=== PATIENT | male | born 1990 | race Two or more races ===

== ENCOUNTER 2019-06-25 12:17 | Inpatient (IN) | payer OTHER ==
[2019-06-25 14:23] VITALS: BMI 25.3
--- NOTE | 2019-06-25 16:28 | HP ---
COWS - Scale Resting Pulse: 1= IL 81-100 Sweatin= Chills/Flushing Restless Observation: 0= Sits Still Pupil Size: 1= Pupils >than Normal Bone or Joint Aches: 1= Mild Discomfort Runny Nose/ Eye Tearin= Nasal Congestion GI Upset > 30mins: 2= Nausea/Diarrhea Tremor Observation: 1= Tremor [place], Not Seen Yawning Observation: 0= None Anxiety or Irritability: 1=Feels Anxious/Irritable Goose Flesh Skin: 0=Smooth Skin COWS Score: 9 CIWA Score - Admission Criteria OASAS Guidelines: Admission for Medically Managed Detox: Requires at least one of the followin. CIWA greater than 12 2. Seizures within the past 24 hours 3. Delirium tremens within the past 24 hours 4. Hallucinations within the past 24 hours 5. Acute intervention needed for co occurring medical disorder 6. Acute intervention needed for co occurring psychiatric disorder 7. Severe withdrawal that cannot be handled at a lower level of care (continued vomiting, continued diarrhea, abnormal vital signs) requiring intravenous medication and/or fluids 8. Admitting History and Physical - Admission History of Present Illness: 29 yo m w/ PMH herion abuse comes in for detox from heroin. Patient endorses using 6-8 bags of herion IV daily for the past 2 weeks. He was recently admitted to detox at [facility] and was discharged on outpatient Vivitrol. His last Vivitrol injection was 06/02. After discharge from [facility], he was clean for 2 months until 2 weeks ago. Patient endorses overdosing 8 months ago. Patient has a narcan kit at home. Patient was tested for HIV/HCV 2 months ago at [facility] and states that they were both negative. Patient declined repeat testing at this time. Patient endorses smoking 2 cigarettes per day. Patient does not meet detox criteria as he is on vivitrol. Patient agrees to stay for rehab, however. History Source: Patient Limitations to Obtaining History: No Limitations - Past Medical History Psych: Yes: Addictions - Past Surgical History Past Surgical History: Yes: None - Smoking History Smoking history: Current every day smoker Have you smoked in the past 12 months: Yes Aproximately how many cigarettes per day: 2 Admission ROS S - HPI Allergies/Adverse Reactions: Allergies Allergy/AdvReac Type Severity Reaction Status Date / Time No Known Allergies Allergy Verified 06/25/19 14:19 - Ebola screening Have you traveled outside of the country in the last 21 days: No Have you had contact with anyone from an Ebola affected area: No - Review of Systems Constitutional: Weakness Musculoskeletal: reports: Back Pain Psychiatric: reports: Judgement Intact, Mood/Affect Appropiate, Orientated x3 Patient History - Smoking Cessation Smoking history: Current every day smoker Have you smoked in the past 12 months: Yes Initiated information on smoking cessation: Yes 'Breaking Loose' booklet given: 06/25/19 - Substances abused Heroin Substance route: Injection Frequency: Daily Amount used: 6-7 bags Age of first use: 22 Date of last use: 06/24/19 Admission Physical Exam [facility] - Vital Signs Vital Signs: Vital Signs - 24 hr 06/25/19 14:19 Temperature 97.7 F Pulse Rate 94 H Respiratory 18 Rate Blood Pressure 114/76 - Physical General Appearance: Yes: No Apparent Distress, Nourished, Appropriately Dressed HEENTM: Yes: EOMI, Normal ENT Inspection, GILDARDO Respiratory: Yes: Chest Non-Tender, Lungs Clear, Normal Breath Sounds, No Respiratory Distress, No Accessory Muscle Use Neck: Yes: Trachea in good position Cardiology: Yes: Regular Rhythm, Regular Rate, S1, S2. No: JVD, Murmur, Gallop/ S3, Gallop/S4 Abdominal: Yes: Normal Bowel Sounds, Non Tender, Flat, Soft Neurological: Yes: ventilating engineer II-XII NML intact, Fully Oriented, Alert, Motor Strength 5/5, Normal Mood/Affect, Normal Response Integumentary: Yes: Normal Color, Dry, Warm - Diagnostic (1) Opioid dependence Current Visit: Yes Status: Acute Breathalyzer - Breathalyzer Breathalyzer: 0 Urine Drug Screen - Test Device Lot number: [id number] Expiration date: 01/07/21 - Control Is test valid?: Yes - Results Drug screen NEGATIVE: No Urine drug screen results: MOP-Opiates Inpatient Rehab Admission - Rehab Decision to Admit Inpatient rehab admission?: Yes - Initial Determination Are CD services needed?: Yes Free of communicable disease: Yes Not in need of hospitalization: Yes - Rehab Admission Criteria Previous failed treatment: Yes Poor recovery environment: Yes Comorbidities: No Lacks judgement: No Patient is meeting Inpatient Rehab admission criteria:: Yes
[2019-06-25] MEDS ORDERED: ACETAMINOPHEN 325 MG TABLET (FP) PO PRN (16:57)
[2019-06-25] MEDS ORDERED: LOPERAMIDE HCL 2 MG CAPSULE PO PRN (16:57)
[2019-06-25] MEDS ORDERED: MAG HYDROX/AL HYDROX/SIMETH 30 ML UNIT-DOSE CUP PO PRN (16:57)
[2019-06-25] MEDS ORDERED: P-EPHED 60MG/TRIPROLIDI 2.5MG TABLET PO PRN (16:57)
[2019-06-25] MEDS ORDERED: IBUPROFEN 400 MG TABLET (FP) PO PRN (16:57)
[2019-06-25] MEDS ORDERED: MENTHOL/PHENOL 1 EACH UD MM PRN (16:57)
[2019-06-25] MEDS ORDERED: MAGNESIUM CITRATE 300 ML BOTTLE PO PRN (16:57)
[2019-06-25] MEDS ORDERED: guaiFENesin 200 MG/10 ML 10 ML UNIT-DOSE CUPS PO PRN (16:57)
[2019-06-25] MEDS ORDERED: MAGNESIUM HYDROX 2400MG/30ML ORAL SUSPENSION 30 ML CUP PO PRN (16:57)
--- NOTE | 2019-06-25 18:11 | PN ---
Teaching Attending Note Name of Resident: Evert Rodgers ATTENDING PHYSICIAN STATEMENT I saw and evaluated the patient. I reviewed the resident's note and discussed the case with the resident. I agree with the resident's findings and plan as documented. SUBJECTIVE:pt reports latest injection of Vivitrol 06/02/19 OBJECTIVE: wnwd Vital Signs - 24 hr 06/25/19 06/25/19 14:19 18:09 Temperature 97.7 F 97.8 F Pulse Rate 94 H 84 Respiratory 18 16 Rate Blood Pressure 114/76 133/73 ASSESSMENT AND PLAN: OUD on antagonist therapy - rehab
[2019-06-25] MEDS ORDERED: TUBERCULIN PPD 5 TU/0.1ML VIAL ID ONE (18:46)
[2019-06-25] MEDS: MELATONIN 5 MG TABLETS PO PRN (21:39)
[2019-06-25] MEDS: THIAMINE HCL 100 MG TABLET (FP) PO SCH (21:39)
--- NOTE | 2019-06-26 09:35 | PN ---
[facility] Progress Note Note: Pt is a 29 y/o male with a hx of I.V Heroin dependence admitted to rehab on 06/25 through [facility]. Pt reports he is on Vivitrol MAT last dose on 07/03/18 with [place], [place] with Suboxone prescriber, Dr. Swift. Pt reports he has been using Heroin for past 2 weeks before coming here and is currently having w/s-hot/cold sweats/chills, no BM x 2-3 days, back pain-hx of herniated disc(goes to PT and not on medication for pain). Pt requesting medication to alleviate his symptoms. Pt also reports hx of Insomnia and took Trazodone. Reports depressed sometimes and requests psych consult. sahra meyer/h/i at this time. Vital Signs - 24 hr 06/25/19 06/25/19 06/26/19 14:19 18:09 00:46 Temperature 97.7 F 97.8 F Pulse Rate 94 H 84 Respiratory 18 16 18 Rate Blood Pressure 114/76 133/73 06/26/19 06/26/19 03:30 07:35 Temperature 97.7 F Pulse Rate 69 Respiratory 18 18 Rate Blood Pressure 109/65 Alert o x 3, nad oob ambulating with steady gait. extremities/skin:no edema, skin intact. A/P new rehab pt maintain safety increase po fluids motrin prn as directed for pain robaxin prn as directed for pain follow up with psych consult.
[2019-06-26] MEDS: hydrOXYzine PAMOATE 50 MG CAPSULE (FP) PO PRN ×2 (10:04→21:33)
[2019-06-26] MEDS: PRENATAL VITAMINS W/ FOLIC ACID TABLET (FP) PO SCH (10:04)
[2019-06-26 12:00] LABS: HEMATOCRIT 39.8 % (35.4-49); HEMOGLOBIN 13.4 GM/dL (11.7-16.9); MCH 28.8 pg (25.7-33.7); MCHC 33.7 g/dl (32.0-35.9); MEAN CELL VOLUME 85.4 fl (80-96); MEAN PLT VOLUME 8.6 fl (7.5-11.1); PLATELET COUNT 274 K/MM3 (134-434); RBC 4.66 M/mm3 (4.00-5.60); RDW 14.8 % (11.9-15.9); WHITE BLOOD COUNT 4.5 K/mm3 (4.0-10.0)
[2019-06-26 12:26] LABS: ALBUMIN 4.2 g/dl (3.4-5.0); BILIRUBIN,TOTAL 0.6 mg/dL (0.2-1); BLOOD UREA NITROGEN 18.4 mg/dL (7-18); CALCIUM 9.5 mg/dL (8.5-10.1); CREATININE 0.9 mg/dL (0.55-1.3); POTASSIUM 4.6 mmol/L (3.5-5.1); TOT PROT 7.5 g/dl (6.4-8.2)
[2019-06-26] MEDS: METHOCARBAMOL 500 MG TABLET PO PRN (16:55)
[2019-06-26] MEDS: MELATONIN 5 MG TABLETS PO PRN (21:33)
[2019-06-26] MEDS: THIAMINE HCL 100 MG TABLET (FP) PO SCH (21:33)
[2019-06-27] MEDS: PRENATAL VITAMINS W/ FOLIC ACID TABLET (FP) PO SCH (10:49)
[2019-06-27] MEDS: METHOCARBAMOL 500 MG TABLET PO PRN (10:50)
[2019-06-27 11:41] LABS: PH,URINE 5.5 (5.0-8.0); URINE APPEARANCE CLEAR; URINE BILIRUBIN NEGATIVE (NEGATIVE); URINE COLOR YELLOW; URINE GLUCOSE (UA) NEGATIVE (NEGATIVE); URINE KETONE NEGATIVE (NEGATIVE); URINE LEUK ESTERASE NEGATIVE (NEGATIVE); URINE NITRITE NEGATIVE (NEGATIVE); URINE PROTEIN NEGATIVE (NEGATIVE); URINE UROBILINOGEN 0.2 mg/dL (0.2-1.0)
[2019-06-27] MEDS: THIAMINE HCL 100 MG TABLET (FP) PO SCH (21:37)
[2019-06-27] MEDS: hydrOXYzine PAMOATE 50 MG CAPSULE (FP) PO PRN (21:37)
[2019-06-27] MEDS: MELATONIN 5 MG TABLETS PO PRN (21:38)
[2019-06-28 06:45] VITALS: BP 115/68; PULSE 82; TEMP 96.9
[2019-06-28] MEDS: PRENATAL VITAMINS W/ FOLIC ACID TABLET (FP) PO SCH (10:11)
[2019-06-28] MEDS: METHOCARBAMOL 500 MG TABLET PO PRN (10:13)
[2019-06-28] MEDS: hydrOXYzine PAMOATE 50 MG CAPSULE (FP) PO PRN (10:13)
== END 2019-06-28 11:24 | disposition left against medical advice (07) | DRG 770 ==
LOC: YASAS 12:17 → Y5N 17:17
PROVIDERS: ADMIT Neuromusculoskeletal Medicine & OMM; ATTEND Neuromusculoskeletal Medicine & OMM
PROC: HZ42ZZZ Group Counseling for Substance Abuse Treatment, Cognitive-Behavioral (ICD-10-PCS; principal; 2019-06-25)
DX: F11.20 Opioid dependence, uncomplicated (principal); F17.210 Nicotine dependence, cigarettes, uncomplicated; Z86.59 Personal history of other mental and behavioral disorders
CPT/HCPCS: 36415; 80053; 81003; 85027; 86593